=== PATIENT | female | born 1990 | race Caucasian/White ===

== ENCOUNTER 2017-09-19 15:33 | Emergency (ER) | payer MEDICAID ==
[~2017-09-19] VITALS: Ht 165.1 cm; Wt 167.8 kg
[2017-09-19 15:36] VITALS: BP 148/84
--- NOTE | 2017-09-19 15:39 | NUR ---
PT AMBULATES TO BED 11, REPORT GIVEN TO ISAC DAVALOS
[2017-09-19] MEDS ORDERED: DEXAMETHASONE 10 MG/ML VIAL IM ONE (15:50)
[2017-09-19] MEDS ORDERED: IBUPROFEN 600 MG TAB PO ONE (15:50)
--- NOTE | 2017-09-19 16:01 | NUR ---
PT C/O SORE THROAT FOR 3 DAYS, DENIES FEVER N/V/D. +REDNESS AND SWELLING TO PHARYNX, AIRWAY PATENT. . NAD NOTED/STATED OTHERWISE
--- NOTE | 2017-09-19 16:08 | NUR ---
PT AMBULATES TO BR WITH STEADY GAIT
[2017-09-19 16:24] VITALS: BP 118/78
--- NOTE | 2017-09-19 16:24 | NUR ---
Patient discharged with v/s stable. Written and verbal after care instructions given and explained. Patient alert, oriented and verbalized understanding of instructions. Ambulatory with steady gait. All questions addressed prior to discharge. ID band removed. Patient advised to follow up with PMD. Rx of AMOXICILLIN, IBUPROFEN given. Patient educated on indication of medication including possible reaction and side effects. Opportunity to ask questions provided and answered.
== END 2017-09-19 16:24 | disposition home or self-care (01) ==
LOC: MED 15:33
DX: J02.9 Acute pharyngitis, unspecified (principal); R03.0 Elevated blood-pressure reading, without diagnosis of hypertension
CPT/HCPCS: 81025; 96372; 99283; J1100

== ENCOUNTER 2019-04-16 22:13 | Emergency (ER) | payer MEDICAID ==
[~2019-04-16] VITALS: Ht 165.1 cm; Wt 157.4 kg
[2019-04-16 22:14] VITALS: BP 142/90
--- NOTE | 2019-04-16 22:16 | NUR ---
TO LOBBY A/W BED AMBULATORY
--- NOTE | 2019-04-16 22:23 | NUR ---
PT AMBULATED TO [facility]
[2019-04-16] MEDS ORDERED: DEXAMETHASONE 10 MG/ML VIAL IM ONE (22:30)
--- NOTE | 2019-04-16 22:30 | NUR ---
29/F PRESENTS TO ED, C/O COUGH, CONGESTION, X6 DAYS. DENIES FEVER/CHILLS. PT AWAKE AND ALERT, SKIN NORMAL COLOR WARM AND DRY, RR EVEN AND UNLABORED. LUNG SOUNDS CLEAR BL. DENIES MED HX
--- NOTE | 2019-04-16 22:56 | NUR ---
Patient discharged with v/s stable. Written and verbal after care instructions given and explained. Patient alert, oriented and verbalized understanding of instructions. Ambulatory with steady gait. All questions addressed prior to discharge. ID band removed. Patient advised to follow up with PMD. Rx of IBUPROFEN, TESSALON PERLES, ALBUTEROL INH, PREDNISONE given. Patient educated on indication of medication including possible reaction and side effects. Opportunity to ask questions provided and answered.
== END 2019-04-16 22:55 | disposition home or self-care (01) ==
LOC: MED 22:13
DX: J40 Bronchitis, not specified as acute or chronic (principal)
CPT/HCPCS: 96372; 99283; J1100

== ENCOUNTER 2020-01-13 11:37 | Emergency (ER) | payer MEDICAID ==
[~2020-01-13] VITALS: Ht 165.1 cm; Wt 154.2 kg
[2020-01-13 11:42] VITALS: BP 154/98
--- NOTE | 2020-01-13 11:49 | NUR ---
Patient ambulated to bed 6. RN evaluating the patient at bedside.
--- NOTE | 2020-01-13 11:51 | NUR ---
29 y/o female from home c/o lower back pain that radiates to bilateral legs x 1 month. Denies trauma/injury. No deformities noted. Pt able to ambulate with steady gait. 10/10 constant aching pain unrelieved by pain medication. Positioned for comfort medhx: denies
--- NOTE | 2020-01-13 11:55 | NUR ---
Dr Woo at bedside examining
[2020-01-13] MEDS ORDERED: HYDROcodone/APAP 5/325 MG 1 TAB TAB PO ONE (12:05)
[2020-01-13] MEDS ORDERED: KETOROLAC 30 MG/ML VIAL IM ONE (12:05)
[2020-01-13] MEDS ORDERED: ONDANSETRON 4 MG ODT PO ONE (12:05)
[2020-01-13 12:42] VITALS: BP 154/98
--- NOTE | 2020-01-13 12:42 | NUR ---
Patient discharged with v/s stable. Written and verbal after care instructions given and explained. Patient alert, oriented and verbalized understanding of instructions. Ambulatory with steady gait. All questions addressed prior to discharge. ID band removed. Patient advised to follow up with PMD. Rx of Ibuprofen 600mg and Valium 5mg given. Patient educated on indication of medication including possible reaction and side effects. Opportunity to ask questions provided and answered.
== END 2020-01-13 12:42 | disposition home or self-care (01) ==
LOC: MED 11:37
DX: M54.9 Dorsalgia, unspecified (principal); X50.0XXA Overexertion from strenuous movement or load, initial encounter; Y93.89 Activity, other specified; Y92.89 Other specified places as the place of occurrence of the external cause; Y99.8 Other external cause status
CPT/HCPCS: 96372; 99283; J1885; Q0162

== ENCOUNTER 2021-09-03 12:23 | Emergency (ER) | payer MEDICAID ==
[~2021-09-03] VITALS: Ht 165.1 cm; Wt 175.7 kg
[2021-09-03 12:39] VITALS: BP 159/83
--- NOTE | 2021-09-03 12:45 | NUR ---
KEYONA. HANDED ON URINE CUP.
--- NOTE | 2021-09-03 12:50 | NUR ---
C/O 5/10 LOWER BACK PAIN , LEEROY LEGS NUMBNESS X 3 MONTHS. PMH: OBESITY
[2021-09-03] MEDS ORDERED: KETOROLAC 30 MG/ML VIAL IM ONE (13:35)
[2021-09-03] MEDS ORDERED: LID5T TP (14:10)
[2021-09-03] MEDS ORDERED: CYCL-711 PO (14:10)
[2021-09-03] MEDS ORDERED: IBUP-2218 PO (14:10)
[2021-09-03 15:02] VITALS: BP 159/83
--- NOTE | 2021-09-03 15:02 | NUR ---
Patient discharged BY ANAID ESPINAL with v/s stable.DC WITHOUT SIGNING PAPER. Written and verbal after care instructions given and explained. Patient alert, oriented and verbalized understanding of instructions. Ambulatory with steady gait. All questions addressed prior to discharge. ID band removed. Patient advised to follow up with PMD. Rx of FLEXERIL, IBUPROFEN & LIDODERM5%PATCH given. Patient educated on indication of medication including possible reaction and side effects. Opportunity to ask questions provided and answered.
--- NOTE | 2021-09-03 15:02 | NUR ---
LEFT MESSAGE FOR [id number] FOR DC INSTRUCTION.
--- NOTE | 2021-09-03 15:02 | NUR ---
Note undone in EDM - 09/03/21 at 1507 by [email or web address] Patient discharged BY ANAID ESPINAL with v/s stable. Written and verbal after care instructions given and explained. Patient alert, oriented and verbalized understanding of instructions. Ambulatory with steady gait. All questions addressed prior to discharge. ID band removed. Patient advised to follow up with PMD. Rx of FLEXERIL, IBUPROFEN & LIDODERM5%PATCH given. Patient educated on indication of medication including possible reaction and side effects. Opportunity to ask questions provided and answered.
== END 2021-09-03 15:02 | disposition home or self-care (01) ==
LOC: MED 12:23
DX: S39.012A Strain of muscle, fascia and tendon of lower back, initial encounter (principal); M54.16 Radiculopathy, lumbar region; E66.01 Morbid (severe) obesity due to excess calories; R03.0 Elevated blood-pressure reading, without diagnosis of hypertension; Z68.44 Body mass index [BMI] 60.0-69.9, adult; Z79.899 Other long term (current) drug therapy; X58.XXXA Exposure to other specified factors, initial encounter; Y93.89 Activity, other specified; Y92.89 Other specified places as the place of occurrence of the external cause; Y99.8 Other external cause status
CPT/HCPCS: 81002; 81025; 96372; 99283; J1885

== ENCOUNTER 2022-03-31 07:50 | Emergency (ER) | payer MEDICAID ==
[~2022-03-31] VITALS: Ht 165.1 cm; Wt 170.1 kg
[~2022-03-31 07:50] MED LIST: CYCL-711 PO; IBUP-2218 PO; LID5T TP
[2022-03-31 07:56] VITALS: BP 161/95
--- NOTE | 2022-03-31 08:00 | NUR ---
C/O COUGH, DENG, CONGESTION, RUNNY NOSE X 3 WEEKS. COVID TESTED NEGATIVE 8 DAYS AGO. PMH: OBESITY
--- NOTE | 2022-03-31 08:04 | NUR ---
KEYONA. JEMIMA, FLU SWABS DONE.
[2022-03-31] MEDS ORDERED: BENZ200C4 PO (08:28)
[2022-03-31] MEDS ORDERED: LORA-1526 PO (08:28)
--- NOTE | 2022-03-31 08:35 | NUR ---
Patient discharged with v/s stable. Written and verbal after care instructions given and explained. Patient alert, oriented and verbalized understanding of instructions. Ambulatory with steady gait. All questions addressed prior to discharge. ID band removed. Patient advised to follow up with PMD. Rx of BENZONATATE, LORATADINE given. Patient educated on indication of medication including possible reaction and side effects. Opportunity to ask questions provided and answered.
== END 2022-03-31 08:36 | disposition home or self-care (01) ==
LOC: MED 07:50
DX: R05.9 Cough, unspecified (principal); Z20.822 Contact with and (suspected) exposure to COVID-19; M79.10 Myalgia, unspecified site; R09.89 Other specified symptoms and signs involving the circulatory and respiratory systems; Z79.899 Other long term (current) drug therapy
CPT/HCPCS: 99283

== ENCOUNTER 2022-08-29 11:04 | Emergency (ER) | payer MEDICAID ==
[~2022-08-29] VITALS: Ht 165.1 cm; Wt 168.3 kg
[~2022-08-29 11:04] MED LIST changes: +BENZ200C4 PO; +LORA-1526 PO
[2022-08-29 11:05] VITALS: BP 157/105
[2022-08-29 13:20] LABS: APPEARANCE,URINE CLEAR (CLEAR); BILIRUBIN,URINE NEGATIVE (NEGATIVE); BLOOD, URINE NEGATIVE (NEGATIVE); COLOR,URINE YELLOW (YELLOW); LEUKOCYTE ESTERASE ,URINE NEGATIVE (NEGATIVE); NITRITE, URINE NEGATIVE (NEGATIVE); UGLUCOSE NEGATIVE (NEGATIVE)
--- NOTE | 2022-08-29 14:05 | NUR ---
PATIENT AMBULTED FROM WAITING ROOM TO BED 11 WITHOUT ASSISTANCE
--- NOTE | 2022-08-29 14:11 | NUR ---
32 YO FEMALE COMPLAINTS FOR BACK PAIN, RIGHT SIDE FLANK PAIN. INCREASED URINARY URGENCY. PMH-NONE ALLERGIES-NONE
[2022-08-29] MEDS ORDERED: PRED20TA5 PO (14:26)
[2022-08-29] MEDS ORDERED: CYCL-711 PO (14:26)
[2022-08-29] MEDS ORDERED: ACET-10509 PO (14:26)
[2022-08-29] MEDS ORDERED: LID5T TP (14:26)
[2022-08-29 14:32] VITALS: BP 157/105
--- NOTE | 2022-08-29 14:33 | NUR ---
Patient discharged with v/s stable. Written and verbal after care instructions given and explained. Patient alert, oriented and verbalized understanding of instructions. Ambulatory with steady gait. All questions addressed prior to discharge. ID band removed. Patient advised to follow up with PMD. Rx of TYLENOL,FLEXERIL,LIDODERM,DELTASONE given. Patient educated on indication of medication including possible reaction and side effects. Opportunity to ask questions provided and answered.
== END 2022-08-29 14:32 | disposition home or self-care (01) ==
LOC: MED 11:04
DX: M54.31 Sciatica, right side (principal); M54.50 Low back pain, unspecified; Z79.899 Other long term (current) drug therapy
CPT/HCPCS: 81003; 99283